=== PATIENT | male | born 1980 | race Caucasian/White ===

== ENCOUNTER 2017-01-01 04:42 | Inpatient (IN) | payer BC ==
[~2017-01-01] VITALS: Ht 185.4 cm; Wt 71.5 kg
[2017-01-01] MEDS ORDERED: DIAZEPAM INJ 5 MG/ML 2 ML CARP IV STA (04:52)
[2017-01-01] MEDS ORDERED: SODIUM CHLORIDE 0.9% 1000ML 1,000 ML IV STA ×2 (04:52)
[2017-01-01 05:28] LABS: BENZODIAZEPINE, URINE NEG (NEG); COCAINE,URINE NEG (NEG); PHENCYCLIDINE, URINE NEG (NEG)
[2017-01-01 05:49] LABS: URINE APPEARANCE CLEAR (CLEAR); URINE BILIRUBIN NEG (NEG); URINE COLOR YELLOW; URINE NITRITE NEG (NEG); URINE PH 6.5 (4.5-7.5); URINE SPECIFIC GRAVITY 1.008 (1.000-1.030); UROBILINOGEN NEG (NEG)
[2017-01-01 06:00] LABS: BASO % 0.5 %; BASO ABS # 0.03 K/uL (0-0.2); COMPLETE YES; EOS % 1.1 %; HEMATOCRIT 39.6 % (42-52); IG% 2.5 %; LYMPH % 19.8 %; LYMPH ABS # 1.28 K/uL (1.2-3.4); MEAN CELL VOLUME 81.5 fL (80-100); MEAN CORPUSCULAR HEMOGLOBIN 27.4 pg (25-34); MEAN CORPUSCULAR HGB CONC 33.6 g/dl (32-36); MONO % 7.9 %; NEUT % 68.2 %; PLATELET COUNT 263 K/uL (130-400); RED BLOOD COUNT 4.86 M/uL (4.7-6.1); WHITE BLOOD COUNT 6.47 K/uL (4.8-10.8)
[2017-01-01 06:04] LABS: MANUAL MICROSCOPIC REQUIRED? NO; REVIEW REQ? NO
[2017-01-01 06:08] LABS: BUN/CREATININE RATIO 10.3 (10-20); CREATININE 0.94 mg/dl (0.60-1.40); POTASSIUM 3.3 mmol/L (3.5-5.1)
[2017-01-01 06:13] LABS: PROTHROMBIN TIME (PATIENT) 10.9 SECONDS (9.0-12.0)
[2017-01-01] MEDS ORDERED: POTASSIUM CHLORIDE 10 MEQ TABCR PO STA (06:18)
[2017-01-01 06:21] LABS: PHOSPHORUS 0.5 mg/dl (2.5-4.9); THYROID STIMULATING HORMONE 2.89 uIu/ml (0.300-4.500)
[2017-01-01] MEDS ORDERED: POTASSIUM PHOS 3 MMOL/1 ML INFUSION IV STA (06:23)
[2017-01-01] MEDS ORDERED: POTASSIUM PHOSPHATE INJ 40 MMOL in SODIUM CHLORIDE 0.9% 1000ML 1,000 ML IV ONE (07:00)
--- NOTE | 2017-01-01 07:32 | DIAGNOSTIC IMAGING REPORT ---
CT SCAN OF THE BRAIN WITHOUT IV CONTRAST CLINICAL HISTORY: Seizure. COMPARISON STUDY: No priors. TECHNIQUE: Unenhanced axial CT scan of the brain is performed from the vertex to the skull base. Automated dose control exposure was utilized. CT DOSE: 614.27 mGy.cm FINDINGS: Brain parenchyma: The brain parenchyma is normal in appearance. There is no hemorrhage, mass effect, or evidence of acute territorial ischemia by CT criteria. Walker-white matter is preserved. No extra-axial fluid collection is seen. Ventricles, sulci, cisterns: Normal in configuration. Intracranial vasculature: The visualized intracranial vasculature at the skull base is normal in appearance. Calvarium: Unremarkable. Sinuses and mastoids: The visualized paranasal sinuses are clear. The mastoid air cells are well pneumatized. Orbits: The bony orbits are grossly intact. IMPRESSION: There is no hemorrhage, mass effect, or evidence of acute territorial ischemia by CT criteria. Electronically signed by: Ricky Latham M.D. 01/01/2017 7:31 AM Dictated Date/Time: 01/01/2017 7:29 AM
[2017-01-01] MEDS ORDERED: LORAZEPAM 2 MG/ML 1 ML VIAL IV PRN (08:15)
[2017-01-01] MEDS ORDERED: ONDANSETRON INJ 2 MG/ML 2 ML VIAL IV PRN (08:15)
[2017-01-01] MEDS ORDERED: MAGNESIUM HYDROXIDE SUSP 30 ML UDC PO PRN (08:15)
[2017-01-01] MEDS ORDERED: ACETAMINOPHEN 325 MG TAB PO PRN (08:15)
[2017-01-01 08:16] VITALS: BP 108/70; PULSE 76; TEMP 36.9; O2SAT 100; Ht 185.4 cm; Wt 71.5 kg
--- NOTE | 2017-01-01 08:57 | Medical Student: [facility] ---
Med Student History & Physical Date & Time of Service: Jan 01, 2017 at 08:37 Chief Complaint: Seizure Primary Care Physician: Shashi Cook MD History of Present Illness Source: patient, spouse 36 year old male with a history of resolved Crohn's disease presents to the ED with a possible seizure overnight. Patient's states that she woke up around 3:45 am and the patient was convulsing and shaking for about 2-3 minutes. He was not responsive to verbal or visual cues. He stopped shaking after 2-3 minutes but for about 10 minutes he was still not responsive to cues. Patient doesn't remember anything about the seizure, says he came to and there were just insecticide sprayer around him. He denies any incontinence, teeth grinding, fevers, chills, or headaches. He has never had a seizure before. He did have some loose stools and pain with his BM last night before he went to bed. There is no family history of seizures. The patient states that his Crohn's disease has been resolved for about 10 years. He does not take any medication for it and he is not being followed by GI or any other doctor for it. Past Medical/Surgical History Crohn's Disease Bilateral Middle Back pain Family History Mom: HTN, Heart disease Dad: HTN Sister: Anxiety Dementia in the family Father: HTN Mother: HTN, heart disease Social History Lives with and son. 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 Does not smoke, rarely drinks alcohol, and does not use recreational drugs. Smoking Status: Never Smoker Smokeless Tobacco Use: No Alcohol Use: Rarely. Couple times a year Drug Use: none Marital Status: Housing status: lives with family Occupational Status: employed Allergies Coded Allergies: Mercaptopurine (Verified Adverse Reaction, Intermediate, GI SYMPTOMS, 01/01) Medications No Active Prescriptions or Reported Meds Review of Systems Constitutional: No fever, No chills, No weight loss Eyes: No worsening of vision, No discharge ENT: No hearing loss, No tinnitus, No trouble swallowing Respiratory: + shortness of breath (Sometime with his back pain), No cough, No sputum, No hemoptysis Cardiovascular: No chest pain, No edema Abdomen: + diarrhea (Had loose stools before he went to bed and woke up with seizure), No pain, No nausea, No vomiting, No constipation Musculoskeletal: No joint pain, No muscle pain, No swelling Genitourinary - Male: No hematuria, No urinary frequency, No urinary urgency Neurologic: No paralysis, No weakness, No numbness/tingling Psychiatric: No depression symptoms Endocrine: No excessive urination Hematologic / Lymphatic: No abnormal bleeding/bruising Integumentary: + problem reported (Bug Bites), No rash, No itch Physical Exam Vital Signs (24 Hours) Date Time Temp Pulse Resp B/P (MAP) Pulse Ox O2 Delivery O2 Flow Rate FiO2 01/01/17 08:16 100 Room Air 01/01/17 08:14 98 01/01/17 07:00 96 15 111/60 100 Room Air 01/01/17 05:27 107 15 01/01/17 05:12 98 16 100 01/01/17 05:03 99 Room Air 01/01/17 05:03 99 Room Air 01/01/17 04:57 97 100 01/01/17 04:51 99 01/01/17 04:46 37.0 99 12 125/74 100 Room Air 01/01/17 04:46 125/74 General Appearance: WD/WN, no apparent distress Head: normocephalic, atraumatic Eyes: PERRL ENT: normal ENT inspection, hearing grossly normal, TMs normal, pharynx normal Neck: no adenopathy, trachea midline Respiratory/Chest: lungs clear, normal breath sounds, no respiratory distress Cardiovascular: regular rate, rhythm, no edema, no gallop, no JVD, no murmur, normal peripheral pulses Abdomen/GI: normal bowel sounds, non tender, soft, no organomegaly Back: no CVA tenderness, + decreased range of motion (Bilateral mid-back tenderness and weakness), + paravertebral tenderness Extremities/Musculoskelatal: normal inspection, no calf tenderness, no pedal edema Neurologic/Psych: affiliate 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 specialist II-XII nml as tested, no motor/sensory deficits, alert, normal mood/affect, oriented x 3 Skin: normal color, no rash Diagnostics Laboratory Results Results Past 24 Hours Test 01/01/17 00:00 01/01/17 05:35 01/01/17 05:43 01/01/17 08:03 Range/Units Urine Opiates Screen NEG NEG Urine Methadone, Qualitative NEG NEG Urine Barbiturates NEG NEG Urine Phencyclidine (PCP) Level NEG NEG Ur Amphetamine/Methamphetamine NEG NEG MDMA (Ecstasy) Screen NEG NEG Urine Benzodiazepines Screen NEG NEG Urine Cocaine Metabolite NEG NEG Urine Marijuana (THC) NEG NEG Urine Color YELLOW Urine Appearance CLEAR CLEAR Urine pH 6.5 4.5-7.5 Urine Specific [place] 1.008 1.000-1.030 Urine Protein NEG NEG Urine Glucose (UA) NEG NEG Urine Ketones NEG NEG Urine Occult Blood NEG NEG Urine Nitrite NEG NEG Urine Bilirubin NEG NEG Urine Urobilinogen NEG NEG Urine Leukocyte Esterase NEG NEG White Blood Count 6.47 4.8-10.8 K/uL Red Blood Count 4.86 4.7-6.1 M/uL Hemoglobin 13.3 14.0-18.0 g/dL Hematocrit 39.6 42-52 % Mean Corpuscular Volume 81.5 80-100 fL Mean Corpuscular Hemoglobin 27.4 25-34 pg Mean Corpuscular Hemoglobin Concent 33.6 32-36 g/dl Platelet Count 263 130-400 K/uL Mean Platelet Volume 9.0 7.4-10.4 fL Neutrophils (%) (Auto) 68.2 % Lymphocytes (%) (Auto) 19.8 % Monocytes (%) (Auto) 7.9 % Eosinophils (%) (Auto) 1.1 % Basophils (%) (Auto) 0.5 % Neutrophils # (Auto) 4.42 1.4-6.5 K/uL Lymphocytes # (Auto) 1.28 1.2-3.4 K/uL Monocytes # (Auto) 0.51 0.11-0.59 K/uL Eosinophils # (Auto) 0.07 0-0.5 K/uL Basophils # (Auto) 0.03 0-0.2 K/uL RDW Standard Deviation 40.9 36.4-46.3 fL RDW Coefficient of Variation 13.7 11.5-14.5 % Immature Granulocyte % (Auto) 2.5 % Immature Granulocyte # (Auto) 0.16 0.00-0.02 K/uL Prothrombin Time 10.9 9.0-12.0 SECONDS Prothromb Time International Ratio 1.0 0.9-1.1 Activated Partial Thromboplast Time 25.2 21.0-31.0 SECONDS Partial Thromboplastin Ratio 1.0 Sodium Level 143 136-145 mmol/L Potassium Level 3.3 3.5-5.1 mmol/L Chloride Level 109 98-107 mmol/L Carbon Dioxide Level 26 21-32 mmol/L Anion Gap 8.0 3-11 mmol/L Blood Urea Nitrogen 10 7-18 mg/dl Creatinine 0.94 0.60-1.40 mg/dl Est Creatinine Clear Calc Drug Dose 111.7 ml/min Estimated GFR () 119.6 Estimated GFR (Non- 103.2 BUN/Creatinine Ratio 10.3 10-20 Random Glucose 97 70-99 mg/dl Phosphorus Level 0.5 2.5-4.9 mg/dl Magnesium Level 2.0 1.8-2.4 mg/dl Total Creatine Kinase 264 39-308 U/L Thyroid Stimulating Hormone (TSH) 2.890 0.300-4.500 uIu/ml Diagnostic Radiology CT of head: no pertinent findings Impression Assessment and Plan 36 year old male presented to the ED with new onset seizures and hypophosphatemia and hypokalemia. The seizures seem generalized and lasted about 2-3 minutes followed by a 10 minute post-ictus period. It is possible that his low phosphate levels could have caused the seizures. Etiology for seizures and hypophosphatemia need to be further assessed. Hypophosphatemia -Hyperparathyroidism (assess PTH and Calcium levels) -low vitamin D (assess vitamin D level) -increased glucose intake (unlikely as the patient has not been on IV glucose infusions) -Crohn's disease causing malabsorption of phosphate (unlikely as there is no other malabsorption) -it is possible that he has always had a low base line phosphate level Acute treatment: replenish phosphate levels with IV phosphate. Recheck labs F/u with PCP Seizures -Neurology consult -EEG. If EEG shows abnormalities, consider starting patient on anti-epilectic medication. Treatment: at this time, without specific etiology and since it is a new onset seizure, observe the patient for recurrent seizure. Since he has only had 1 seizure as of date, he does not have epilepsy and should not be started on anti- seizure meds. If EEG shows abnormalities, start on anti-seizure medications. Patient should not be driving at this time. f/u with PCP or neurology outpatient Hypokalemia -recheck labs to see if hypokalemia has resolved with Phosphate replenishment and increased time since the seizure. It is possible that he may have hypokalemia from the seizure. Back Pain -Consider an outpatient work-up for B-27 positive spondyloarthropathy Crohn's Disease -Although he has been in remission, consider outpatient work up for Crohn's disease as it may have started acting up again. Level of Care Med/Surg Advanced Directives Existing Living Will: No Existing Power of Child Welfare Assistant: No
--- NOTE | 2017-01-01 09:37 | Neurology Consultation ---
Neurology Consultation Date of Consultation: Jan 01, 2017. Attending Physician: Primary Care Physician: Shashi Cook MD Reason for Consultation: New-onset seizure History of Present Illness Source: patient, spouse, hospital records This is a 36-year-old male who presented with presumed new onset seizure. Patient denies any recent illnesses or abnormal headaches. He does report having a mild headache this morning likely due to caffeine withdrawal. He does report some chronic low back pain typically associated with sleeping in bed and improves during the day. Denies any radiculopathy type symptoms. Denied any sick symptoms or abnormal symptoms before going to bed last night. reports that she woke up after 3 AM this morning to him convulsing. She reports that he appeared to be shaking all over. His eyes were open and looking straight ahead. He was unresponsive. She reports that he was shaking for 2-3 minutes. After which he seemed to be confused, moaning, moving around in bed, for another 10 minutes. After which she started to respond a little bit more appropriately. No urinary incontinence. No tongue biting. Patient has never had an episode like this in the past. No loss of consciousness. No major head injuries. No recent fevers or sick symptoms. Denies any new medication or abnormal substances. Denies any new numbness or weakness. Denies any new changes in his speech or vision. Denies any trouble speaking or swallowing. This morning he mostly feels back to his baseline but feels a little bit fatigued. Also complains of low back pain with no radiculopathy symptoms which is not new for him. On ER workup labs were reviewed and noted to have a low phosphorus of 0.5. CT of the head report and images reviewed by myself and unremarkable. Past Medical/Surgical History Patient denies any active ongoing medical problems. There is report of past Crohn's disease which the patient reports is resolved. Family History Denies any significant family history. Nobody with seizures or epilepsy. Social History Patient is employed. Normal independent in his activities of daily living. He does drink coffee and a daily basis. No tobacco use. No alcohol use. No illegal drug use. Occasionally takes fish oil as a supplement. No other supplements. Allergies Coded Allergies: Mercaptopurine (Verified Allergy, Severe, GI SYMPTOMS, 01/01/17) Current Inpatient Medications Current Inpatient Medications Medications (Trade) Dose Ordered Sig/Eriberto Route Start Time Stop Time Status Last Admin Dose Admin Sodium Chloride 1,000 ml @ 125 mls/hr Q8H STAT IV 01/01/17 04:52 01/01/17 12:51 01/01/17 04:52 125 MLS/HR Potassium Phosphate 40 mmol/ Sodium Chloride 1,013.3333 ml @ 155.... NOW ONCE IV 01/01/17 07:00 01/01/17 13:29 01/01/17 06:51 155.897 MLS/HR Heparin Sodium (Porcine) (Heparin Sq 5000 Unit/0.5ml) 5,000 unit Q12 SQ 01/01/17 09:00 01/31/17 08:59 UNV Acetaminophen (Tylenol Tab) 650 mg Q4H PRN PO 01/01/17 08:15 01/31/17 08:14 Magnesium Hydroxide (Milk Of Magnesia Susp) 30 ml Q12H PRN PO 01/01/17 08:15 01/31/17 08:14 Ondansetron HCl (Zofran Inj) 4 mg Q6H PRN IV 01/01/17 08:15 01/31/17 08:14 Lorazepam (Ativan Inj) 1 mg ONE PRN IV 01/01/17 08:15 01/31/17 08:14 Review of Systems Except for the above noted in history of present illness complete review of systems otherwise negative. Physical Exam Vital Signs (Past 24 Hrs): Date Time Temp Pulse Resp B/P (MAP) Pulse Ox O2 Delivery O2 Flow Rate FiO2 01/01/17 09:17 88 16 113/75 97 01/01/17 09:11 88 16 113/75 97 Room Air 01/01/17 08:16 100 Room Air 01/01/17 08:14 98 01/01/17 07:00 96 15 111/60 100 Room Air 01/01/17 05:27 107 15 01/01/17 05:12 98 16 100 01/01/17 05:03 99 Room Air 01/01/17 05:03 99 Room Air 01/01/17 04:57 97 100 01/01/17 04:51 99 01/01/17 04:46 37.0 99 12 125/74 100 Room Air 01/01/17 04:46 125/74 Gen.: Patient is alert and sitting in bed, in no acute distress. HEENT: Normocephalic /atraumatic, no scleral icterus Heart: Regular rate and rhythm Extremities: No gross deformities or rashes noted Neurological examination: Mental status: Patient is alert and oriented x3. Attention and concentration normal for the situation. Good fund of knowledge. Able to give her own history. Speech is fluent without any dysarthria or aphasia noted Cranial nerve: Funduscopic examination was unremarkable. No papilledema. Pupils equally round and reactive to light. Extraocular muscles intact without nystagmus. No facial asymmetry noted. Facial sensation intact. Tongue is midline. Good palatal elevation. Good shoulder shrug bilaterally. Hearing grossly intact to voice. Strength: 5/5 both proximal and distally in all extremities. There is no arm drift. Tone is normal. Sensation: Grossly intact to light touch in all extremities. Deep tendon reflexes: +1 in bilateral biceps, brachioradialis and patellar. Toes were downgoing to plantar stimulation Coordination: Patient had good finger to nose without dysmetria Station within the bed was normal Laboratory Results Past 24 Hours: 01/01/17 05:43 Red Blood Count 4.86, Mean Corpuscular Volume 81.5, Mean Corpuscular Hemoglobin 27.4, Mean Corpuscular Hemoglobin Concent 33.6, Mean Platelet Volume 9.0, Neutrophils (%) (Auto) 68.2, Lymphocytes (%) (Auto) 19.8, Monocytes (%) (Auto) 7.9, Eosinophils (%) (Auto) 1.1, Basophils (%) (Auto) 0.5, Neutrophils # (Auto) 4.42, Lymphocytes # (Auto) 1.28, Monocytes # (Auto) 0.51, Eosinophils # (Auto) 0.07, Basophils # (Auto) 0.03 01/01/17 05:43 Test 01/01/17 00:00 01/01/17 05:35 01/01/17 05:43 01/01/17 08:45 Urine Opiates Screen NEG (NEG) Urine Methadone, Qualitative NEG (NEG) Urine Barbiturates NEG (NEG) Urine Phencyclidine (PCP) Level NEG (NEG) Ur Amphetamine/Methamphetamine NEG (NEG) MDMA (Ecstasy) Screen NEG (NEG) Urine Benzodiazepines Screen NEG (NEG) Urine Cocaine Metabolite NEG (NEG) Urine Marijuana (THC) NEG (NEG) Urine Color YELLOW Urine Appearance CLEAR (CLEAR) Urine pH 6.5 (4.5-7.5) Urine Specific [place] 1.008 (1.000-1.030) Urine Protein NEG (NEG) Urine Glucose (UA) NEG (NEG) Urine Ketones NEG (NEG) Urine Occult Blood NEG (NEG) Urine Nitrite NEG (NEG) Urine Bilirubin NEG (NEG) Urine Urobilinogen NEG (NEG) Urine Leukocyte Esterase NEG (NEG) White Blood Count 6.47 K/uL (4.8-10.8) Red Blood Count 4.86 M/uL (4.7-6.1) Hemoglobin 13.3 g/dL (14.0-18.0) Hematocrit 39.6 % (42-52) Mean Corpuscular Volume 81.5 fL (80-100) Mean Corpuscular Hemoglobin 27.4 pg (25-34) Mean Corpuscular Hemoglobin Concent 33.6 g/dl (32-36) Platelet Count 263 K/uL (130-400) Mean Platelet Volume 9.0 fL (7.4-10.4) Neutrophils (%) (Auto) 68.2 % Lymphocytes (%) (Auto) 19.8 % Monocytes (%) (Auto) 7.9 % Eosinophils (%) (Auto) 1.1 % Basophils (%) (Auto) 0.5 % Neutrophils # (Auto) 4.42 K/uL (1.4-6.5) Lymphocytes # (Auto) 1.28 K/uL (1.2-3.4) Monocytes # (Auto) 0.51 K/uL (0.11-0.59) Eosinophils # (Auto) 0.07 K/uL (0-0.5) Basophils # (Auto) 0.03 K/uL (0-0.2) RDW Standard Deviation 40.9 fL (36.4-46.3) RDW Coefficient of Variation 13.7 % (11.5-14.5) Immature Granulocyte % (Auto) 2.5 % Immature Granulocyte # (Auto) 0.16 K/uL (0.00-0.02) Prothrombin Time 10.9 SECONDS (9.0-12.0) Prothromb Time International Ratio 1.0 (0.9-1.1) Activated Partial Thromboplast Time 25.2 SECONDS (21.0-31.0) Partial Thromboplastin Ratio 1.0 Anion Gap 8.0 mmol/L (3-11) Est Creatinine Clear Calc Drug Dose 111.7 ml/min Estimated GFR () 119.6 Estimated GFR (Non- 103.2 BUN/Creatinine Ratio 10.3 (10-20) Phosphorus Level 0.5 mg/dl (2.5-4.9) Magnesium Level 2.0 mg/dl (1.8-2.4) Total Creatine Kinase 264 U/L (39-308) Thyroid Stimulating Hormone (TSH) 2.890 uIu/ml (0.300-4.500) Imaging As noted above in history of present illness Impression This is a 36-year-old male who presents with what sounds like a possible generalized seizure. Cannot rule out focal onset seizure. It is unclear whether his low phosphorus could be an etiology. No other risk factor for seizures. Patient appears to be back to his baseline this morning. Plan Agree with obtaining an MRI of the brain and EEG for further evaluation of seizure etiology. Discussed with patient that per [place] law, if there is no clear preventable/ provokable cause for his seizure, he is not to drive for 6 months since his last seizure. With the single seizure, no need to start antiepileptic medications at this time unless his EEG is highly suggestive for epilepsy and future seizures. Agree with working the patient up for secondary causes of seizure and replacing phosphorus. Will likely need to follow up with primary care physician regarding monitoring of phosphorus levels. If the patient's workup today is essentially unremarkable, could reasonably be discharged tonight or tomorrow morning and follow up in neurology clinic in 1-2 months (or as needed if no additional seizures). Thank you for allowing me to participate in this patient's care. If there is any questions or concerns, feel free to call/page me. Of Note: Back pain sounds like it's likely secondary to his mattress and they may want to consider evaluate getting a new mattress.
[2017-01-01 10:04] LABS: LYME DISEASE AB IGM NEG (NEG)
[2017-01-01 10:05] LABS: LYME DISEASE AB IGG NEG (NEG)
[2017-01-01] MEDS ORDERED: GADAVIST IV PRN (10:45)
--- NOTE | 2017-01-01 10:59 | DIAGNOSTIC IMAGING REPORT ---
MRI OF THE BRAIN COMBO CLINICAL HISTORY: New onset seizure. COMPARISON STUDY: CT of the brain dated 01/01/2017. TECHNIQUE: MRI of the brain was performed utilizing various T1 and T2-weighted sequences in the axial, sagittal, and coronal planes. Contrast-enhanced sequences were acquired following the administration of 6.5 cc of Gadavist. The examination is performed using the seizure protocol. FINDINGS: Brain parenchyma: The brain parenchyma is normal in appearance. There is no hemorrhage or mass effect. There is no restricted diffusion to suggest acute ischemia. No enhancing mass lesion is identified on the postcontrast images. Walker-white matter differentiation is preserved. No extra-axial fluid collection is seen. The cerebellar tonsils are normal in configuration. The hippocampi are normal and symmetric. Ventricles, sulci, and cisterns: Normal in configuration. Pituitary and sella: Unremarkable. Intracranial vasculature: Normal flow voids are maintained at the skull base. Orbits: The bony orbits are grossly intact. Orbital contents are normal in appearance. Sinuses and mastoids: There is trace mucosal thickening in the right maxillary antrum. The remaining paranasal sinuses and mastoid air cells are clear. Calvarium: Unremarkable. Cervical cord: Partially visualized cervical spinal cord is normal in morphology and signal intensity. IMPRESSION: No acute intracranial abnormality. Electronically signed by: Ricky Latham M.D. 01/01/2017 10:58 AM Dictated Date/Time: 01/01/2017 10:53 AM
--- NOTE | 2017-01-01 11:30 | EEG Procedure Note ---
EEG Procedure Note Date of Service Jan 01, 2017. Start / End Times Start Time: 9:05 AM End Time: 9:25 AM Referring Physician Radha Stone History This is a 36-year-old male who presents with a single seizure-like episode. EEG for further evaluation of possible seizure etiology. Home Medication List No Active Prescriptions or Reported Meds Inpatient Medication List Current Inpatient Medications Medications (Trade) Dose Ordered Sig/Eriberto Route Start Time Stop Time Status Last Admin Dose Admin Potassium Phosphate 40 mmol/ Sodium Chloride 1,013.3333 ml @ 155.... NOW ONCE IV 01/01/17 07:00 01/01/17 13:29 01/01/17 06:51 155.897 MLS/HR Heparin Sodium (Porcine) (Heparin Sq 5000 Unit/0.5ml) 5,000 unit Q12 SQ 01/01/17 21:00 01/31/17 20:59 Acetaminophen (Tylenol Tab) 650 mg Q4H PRN PO 01/01/17 08:15 01/31/17 08:14 01/01/17 09:35 650 MG Magnesium Hydroxide (Milk Of Magnesia Susp) 30 ml Q12H PRN PO 01/01/17 08:15 01/31/17 08:14 Ondansetron HCl (Zofran Inj) 4 mg Q6H PRN IV 01/01/17 08:15 01/31/17 08:14 Lorazepam (Ativan Inj) 1 mg ONE PRN IV 01/01/17 08:15 01/31/17 08:14 Gadobutrol (Gadavist) 6.5 mmol UD PRN IV 01/01/17 10:45 01/05/17 10:44 Description This is a 21 electrode EEG with a single channel dedicated to limited EKG. The electrodes were placed in accordance with the International 10-20 system. There was minor intermittent electrical artifact noted at T3 and C3 At the start of the recording the patient was in an awake state. Background was well organized and composed of symmetric mixed alpha and beta frequencies. There was a symmetric well-formed moderate amplitude 11-12 Hz posterior dominant rhythm that was reactive to eye opening and closure. Hyperventilation was not done. Intermittent photic stimulation at various frequencies produced no abnormalities. Sleep was indicated by slowing of the background rhythm, vertex waves, symmetric sleep spindles. Interpretation This is a normal awake and asleep routine EEG. There was no electrographic seizures or epileptiform discharges. Clinical Correlation A normal EEG does not rule out epilepsy if there is a strong clinical suspicion.
[2017-01-01 12:06] LABS: CALCIUM 8.5 mg/dl (8.5-10.1)
--- NOTE | 2017-01-01 12:20 | History and Physical ---
History & Physical Date & Time of Service: Jan 01, 2017 at 11:57 Chief Complaint: Hypokalemia, Hypophosphatasia, Seizure Primary Care Physician: Shashi Cook MD History of Present Illness Source: patient, family This is a 36 yo m that is presenting to us after a witnessed seizure. At approx 0345 the was woken up by the patient diffusely convulsing. This lasted for approximately 2-3 minutes. There was no bowel or bladder incontinence however patient was breathing and unresponsive after the episode for approx 15 minutes. The patient was not awake until the EMT had arrived. He has not had another episode since. This is a first time seizure. he denies any headache, dizziness, tinnitus, presyncope, chest pain or SOB prior to the event. He denies any head trauma aside from a concussion he had 10 -12 years prior. He has had no recent trips, infections and does not take dietary supplements. Does not drink alcohol regularly and no illicit drug use. He was told in his 20s he had an irregular heart beat but no work up was completed. He has a history of Crohn's however does not take medication for this. 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 Family History FHx: coronary artery disease MOTHER Social History Smoking Status: Never Smoker Smokeless Tobacco Use: No Alcohol Use: rarely Drug Use: none Marital Status: Housing status: lives with family Occupational Status: employed Allergies Coded Allergies: Mercaptopurine (Verified Adverse Reaction, Intermediate, GI SYMPTOMS, 01/01) Home Medications No Active Prescriptions or Reported Meds Review of Systems Constitutional: No fever Eyes: No worsening of vision ENT: No hearing loss Respiratory: No cough, No sputum, No wheezing, No shortness of breath, No dyspnea on exertion, No dyspnea at rest Cardiovascular: No chest pain Abdomen: No pain, No nausea, No vomiting, No diarrhea, No constipation Musculoskeletal: No joint pain, No muscle pain Genitourinary - Male: No hematuria, No dysuria Neurologic: No weakness, No numbness/tingling, No balance problems Psychiatric: No depression symptoms Endocrine: No fatigue Integumentary: No rash Physical Exam Vital Signs Date Time Temp Pulse Resp B/P (MAP) Pulse Ox O2 Delivery O2 Flow Rate FiO2 01/01/17 09:17 88 16 113/75 97 01/01/17 09:11 88 16 113/75 97 Room Air 01/01/17 08:16 36.9 76 18 108/70 100 Room Air 01/01/17 08:14 98 01/01/17 07:00 96 15 111/60 100 Room Air 01/01/17 05:27 107 15 01/01/17 05:12 98 16 100 01/01/17 05:03 99 Room Air 01/01/17 05:03 99 Room Air 01/01/17 04:57 97 100 01/01/17 04:51 99 01/01/17 04:46 37.0 99 12 125/74 100 Room Air 01/01/17 04:46 125/74 General Appearance: no apparent distress Head: normocephalic, atraumatic Eyes: normal inspection ENT: normal ENT inspection Neck: supple Respiratory/Chest: normal breath sounds, no respiratory distress, no accessory muscle use Cardiovascular: regular rate, rhythm, no murmur Abdomen/GI: normal bowel sounds, non tender, soft Back: normal inspection Extremities/Musculoskelatal: no calf tenderness, no pedal edema, normal range of motion 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, no motor/sensory deficits, alert, normal mood/affect, normal reflexes, oriented x 3 Skin: normal color, warm/dry, no rash Lymphatic: no adenopathy Diagnostics Laboratory Results Results Past 24 Hours Test 01/01/17 00:00 01/01/17 05:35 01/01/17 05:43 01/01/17 08:45 Range/Units Urine Opiates Screen NEG NEG Urine Methadone, Qualitative NEG NEG Urine Barbiturates NEG NEG Urine Phencyclidine (PCP) Level NEG NEG Ur Amphetamine/Methamphetamine NEG NEG MDMA (Ecstasy) Screen NEG NEG Urine Benzodiazepines Screen NEG NEG Urine Cocaine Metabolite NEG NEG Urine Marijuana (THC) NEG NEG Urine Color YELLOW Urine Appearance CLEAR CLEAR Urine pH 6.5 4.5-7.5 Urine Specific [place] 1.008 1.000-1.030 Urine Protein NEG NEG Urine Glucose (UA) NEG NEG Urine Ketones NEG NEG Urine Occult Blood NEG NEG Urine Nitrite NEG NEG Urine Bilirubin NEG NEG Urine Urobilinogen NEG NEG Urine Leukocyte Esterase NEG NEG White Blood Count 6.47 4.8-10.8 K/uL Red Blood Count 4.86 4.7-6.1 M/uL Hemoglobin 13.3 14.0-18.0 g/dL Hematocrit 39.6 42-52 % Mean Corpuscular Volume 81.5 80-100 fL Mean Corpuscular Hemoglobin 27.4 25-34 pg Mean Corpuscular Hemoglobin Concent 33.6 32-36 g/dl Platelet Count 263 130-400 K/uL Mean Platelet Volume 9.0 7.4-10.4 fL Neutrophils (%) (Auto) 68.2 % Lymphocytes (%) (Auto) 19.8 % Monocytes (%) (Auto) 7.9 % Eosinophils (%) (Auto) 1.1 % Basophils (%) (Auto) 0.5 % Neutrophils # (Auto) 4.42 1.4-6.5 K/uL Lymphocytes # (Auto) 1.28 1.2-3.4 K/uL Monocytes # (Auto) 0.51 0.11-0.59 K/uL Eosinophils # (Auto) 0.07 0-0.5 K/uL Basophils # (Auto) 0.03 0-0.2 K/uL RDW Standard Deviation 40.9 36.4-46.3 fL RDW Coefficient of Variation 13.7 11.5-14.5 % Immature Granulocyte % (Auto) 2.5 % Immature Granulocyte # (Auto) 0.16 0.00-0.02 K/uL Prothrombin Time 10.9 9.0-12.0 SECONDS Prothromb Time International Ratio 1.0 0.9-1.1 Activated Partial Thromboplast Time 25.2 21.0-31.0 SECONDS Partial Thromboplastin Ratio 1.0 Sodium Level 143 136-145 mmol/L Potassium Level 3.3 3.5-5.1 mmol/L Chloride Level 109 98-107 mmol/L Carbon Dioxide Level 26 21-32 mmol/L Anion Gap 8.0 3-11 mmol/L Blood Urea Nitrogen 10 7-18 mg/dl Creatinine 0.94 0.60-1.40 mg/dl Est Creatinine Clear Calc Drug Dose 111.7 ml/min Estimated GFR () 119.6 Estimated GFR (Non- 103.2 BUN/Creatinine Ratio 10.3 10-20 Random Glucose 97 70-99 mg/dl Phosphorus Level 0.5 2.5-4.9 mg/dl Magnesium Level 2.0 1.8-2.4 mg/dl Total Creatine Kinase 264 39-308 U/L Thyroid Stimulating Hormone (TSH) 2.890 0.300-4.500 uIu/ml Lyme Disease IgG Antibody NEG NEG Lyme Disease IgM Antibody NEG NEG 25-Hydroxy Vitamin D Total 30.7 30-100 ng/ml Parathyroid Hormone (Intact) 46.5 11.1-79.5 pg/mL Diagnostic Radiology [~ rep ct add3]] CT SCAN OF THE BRAIN WITHOUT IV CONTRAST CLINICAL HISTORY: Seizure. COMPARISON STUDY: No priors. TECHNIQUE: Unenhanced axial CT scan of the brain is performed from the vertex to the skull base. Automated dose control exposure was utilized. CT DOSE: 614.27 mGy.cm FINDINGS: Brain parenchyma: The brain parenchyma is normal in appearance. There is no hemorrhage, mass effect, or evidence of acute territorial ischemia by CT criteria. Walker-white matter is preserved. No extra-axial fluid collection is seen. Ventricles, sulci, cisterns: Normal in configuration. Intracranial vasculature: The visualized intracranial vasculature at the skull base is normal in appearance. Calvarium: Unremarkable. Sinuses and mastoids: The visualized paranasal sinuses are clear. The mastoid air cells are well pneumatized. Orbits: The bony orbits are grossly intact. IMPRESSION: There is no hemorrhage, mass effect, or evidence of acute territorial ischemia by CT criteria. EKG QTc 447 Normal EKG Impression Assessment and Plan This is a 36 yo m with new onset seizures with no specific provoking features. New onset seizure - Order - MRI brain combo, EEG, Neuro consult, seizure precaution, prn BZD - MRI brain combo- WNL -- EEG - WNL - Appreciate neuro rec - [place] [employer] law patient will be restricted from driving x 6 months -lyme neg - Will monitor overnight and if patient remains seizure free will d/c with follow up with neuro and PCP - Ativan IV available for seizure like activity Hypophosphatemia - Check - Vit D and PTH - WNL - Will replete and recheck in afternoon - unlikely caused by the seizure - pending calcium level Hypokalemia Replete and continue to follow Anemia - Check iron studies considering MCV/MCH on lower side of normal DVT Prophylaxis Heparin bid Level of Care Telemetry Advanced Directives Existing Living Will: No 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 Y/N: Yes Risk Level: Moderate Given or contraindicated: Unfractionated heparin SQ Note Total Time: Critical Care 30 - 74 minutes Additional Copies To Shashi Cook MD Reviewed: Pt Seen/Exam by Me History 36 y/o M here with new onset unprovoked seizure Constitutional: denies: fever Respiratory: negative: short of breath Cardiovascular: denies chest pain Gastrointestinal/Abdominal: negative: abdominal pain General Appearance: no apparent distress Respiratory: lungs clear, no respiratory distress Gastrointestinal: normal bowel sounds, non tender, soft Neurologic/Psychiatric: no motor/sensory deficits, alert, normal mood/affect, oriented x 3 Skin Characteristics: warm/dry Assessment/Plan Resident Physician Supervision Note: I was present with Dr. Stone in bedside. I verified the moe history and physical, reviewed labs and image studies, discussed the case with the resident and agree with the findings and care plan.
[2017-01-01 14:03] LABS: BUN/CREATININE RATIO 8.1 (10-20); CALCIUM 8.2 mg/dl (8.5-10.1); CREATININE 0.9 mg/dl (0.60-1.40); POTASSIUM 3.8 mmol/L (3.5-5.1)
[2017-01-01 14:08] LABS: FERRITIN 153.1 ng/ml (8.0-388.0)
[2017-01-01 14:15] LABS: PHOSPHORUS 3.1 mg/dl (2.5-4.9)
[2017-01-01 15:06] VITALS: BP 112/66; PULSE 84; TEMP 36.8; O2SAT 99
[2017-01-01 16:00] VITALS: O2SAT 99
[2017-01-01 20:00] VITALS: O2SAT 96
[2017-01-01] MEDS: HEPARIN SOD 5000 UNIT/0.5 ML CARP SQ SCH (22:00)
[2017-01-01 23:24] VITALS: BP 116/67; PULSE 94; TEMP 37.6; O2SAT 97
[2017-01-02] MEDS ORDERED: NURSING VERBAL MED ORDER ONE
--- NOTE | 2017-01-02 01:08 | EMERGENCY ROOM VISIT NOTE ---
History First contact with patient: 04:52 Chief Complaint: SEIZURE Stated Complaint: SEIZURE Nursing Triage Summary: found pt seizing at 0400 hours, unresponsive 10-15 minutes. EMS found pt post-ictal complaining of lower back pain which he still has. History of Present Illness The patient is a 36 year old male who presents to the Emergency Room with complaints of possible seizure tonight. Patient does not recall the events but states when he came to he complain of diffuse muscle aching and tightness with mild headache. No prior history of seizures. Patient denies drug use, alcohol use, oral supplements, chest pain, dyspnea, abdominal pain, numbness, tingling, vision problems. No family history of seizures. Patient states he went to bed feeling fine. Patient states he has a history of Crohn's but prayed the Crohn' s disease away per pt. History obtained from the who states that she woke up to him by shaking for 10 minutes. He was then confused for 20 minutes. He was not incontinent. She states he is back now to his baseline. No prior history of seizures. Review of Systems See HPI for pertinent positives & negatives. A total of 10 systems reviewed and were otherwise negative. Past Medical/Surgical History Medical Problems: (1) Hypokalemia (2) Hypophosphatasia (3) Seizure Crohns Social History Smoking Status: Never Smoker Smokeless Tobacco Use: No Alcohol Use: none Drug Use: none Marital Status: Housing Status: lives with family Occupation Status: employed Current/Historical Medications No Active Prescriptions or Reported Meds Allergies Coded Allergies: Mercaptopurine (Verified Adverse Reaction, Intermediate, GI SYMPTOMS, 01/01) Physical Exam Vital Signs Date Time Temp Pulse Resp B/P (MAP) Pulse Ox O2 Delivery O2 Flow Rate FiO2 01/01/17 07:00 96 15 111/60 100 Room Air 01/01/17 05:27 107 15 01/01/17 05:12 98 16 100 01/01/17 05:03 99 Room Air 01/01/17 05:03 99 Room Air 01/01/17 04:57 97 100 01/01/17 04:51 99 01/01/17 04:46 37.0 99 12 125/74 100 Room Air 01/01/17 04:46 125/74 Physical Exam VITALS: Vitals are noted on the nurse's note and reviewed by myself. Vital signs stable. GENERAL: Pleasant male, in no acute distress, nondiaphoretic, well-developed well-nourished. SKIN: The skin was without rashes, erythema, edema, or bruising. There is no tenting of the skin. Capillary reflex less than 2 seconds. HEAD: Normocephalic atraumatic. EARS: External auditory canals clear, tympanic membranes pearly crowe without erythema or effusion bilaterally. EYES: Pupils equal round and reactive to light and accommodation. Conjunctivae without injection, sclerae without icterus. Extraocular movements intact. NOSE: Patent, turbinates without inflammation or discharge. MOUTH: Mucous membranes moist. Pharynx without erythema or exudate. Uvula midline. Airway patent. Tongue does not deviate. NECK: Supple without nuchal rigidity. No lymphadenopathy. No thyromegaly. Cervical spine is nontender. No JVD. HEART: Regular rate and rhythm without murmurs gallops or rubs. LUNGS: Clear to auscultation bilaterally without wheezes, rales or rhonchi. No dullness to percussion. No retractions or accessory muscle use. ABDOMEN: Positive bowel sounds x 4. Normal tympanic percussion. Soft, nontender, without masses or organomegaly. Ritter sign negative. No guarding or rebound tenderness. MUSCULOSKELETAL: No muscle atrophy, erythema, or edema noted. 5 out of 5 strength throughout NEURO: Patient was alert and oriented to person place and time. Normal sensation to light and sharp touch. No focal neurological deficits. Cranial nerves II-12 grossly intact. No pronator drift. Cerebellar exam intact. Medical Decision & Procedures Laboratory Results 01/01/17 05:43 Red Blood Count 4.86, Mean Corpuscular Volume 81.5, Mean Corpuscular Hemoglobin 27.4, Mean Corpuscular Hemoglobin Concent 33.6, Mean Platelet Volume 9.0, Neutrophils (%) (Auto) 68.2, Lymphocytes (%) (Auto) 19.8, Monocytes (%) (Auto) 7.9, Eosinophils (%) (Auto) 1.1, Basophils (%) (Auto) 0.5, Neutrophils # (Auto) 4.42, Lymphocytes # (Auto) 1.28, Monocytes # (Auto) 0.51, Eosinophils # (Auto) 0.07, Basophils # (Auto) 0.03 Test 01/01/17 00:00 01/01/17 05:35 01/01/17 05:43 Urine Opiates Screen NEG (NEG) Urine Methadone, Qualitative NEG (NEG) Urine Barbiturates NEG (NEG) Urine Phencyclidine (PCP) Level NEG (NEG) Ur Amphetamine/Methamphetamine NEG (NEG) MDMA (Ecstasy) Screen NEG (NEG) Urine Benzodiazepines Screen NEG (NEG) Urine Cocaine Metabolite NEG (NEG) Urine Marijuana (THC) NEG (NEG) Urine Color YELLOW Urine Appearance CLEAR (CLEAR) Urine pH 6.5 (4.5-7.5) Urine Specific [place] 1.008 (1.000-1.030) Urine Protein NEG (NEG) Urine Glucose (UA) NEG (NEG) Urine Ketones NEG (NEG) Urine Occult Blood NEG (NEG) Urine Nitrite NEG (NEG) Urine Bilirubin NEG (NEG) Urine Urobilinogen NEG (NEG) Urine Leukocyte Esterase NEG (NEG) White Blood Count 6.47 K/uL (4.8-10.8) Red Blood Count 4.86 M/uL (4.7-6.1) Hemoglobin 13.3 g/dL (14.0-18.0) Hematocrit 39.6 % (42-52) Mean Corpuscular Volume 81.5 fL (80-100) Mean Corpuscular Hemoglobin 27.4 pg (25-34) Mean Corpuscular Hemoglobin Concent 33.6 g/dl (32-36) Platelet Count 263 K/uL (130-400) Mean Platelet Volume 9.0 fL (7.4-10.4) Neutrophils (%) (Auto) 68.2 % Lymphocytes (%) (Auto) 19.8 % Monocytes (%) (Auto) 7.9 % Eosinophils (%) (Auto) 1.1 % Basophils (%) (Auto) 0.5 % Neutrophils # (Auto) 4.42 K/uL (1.4-6.5) Lymphocytes # (Auto) 1.28 K/uL (1.2-3.4) Monocytes # (Auto) 0.51 K/uL (0.11-0.59) Eosinophils # (Auto) 0.07 K/uL (0-0.5) Basophils # (Auto) 0.03 K/uL (0-0.2) RDW Standard Deviation 40.9 fL (36.4-46.3) RDW Coefficient of Variation 13.7 % (11.5-14.5) Immature Granulocyte % (Auto) 2.5 % Immature Granulocyte # (Auto) 0.16 K/uL (0.00-0.02) Prothrombin Time 10.9 SECONDS (9.0-12.0) Prothromb Time International Ratio 1.0 (0.9-1.1) Activated Partial Thromboplast Time 25.2 SECONDS (21.0-31.0) Partial Thromboplastin Ratio 1.0 Magnesium Level 2.0 mg/dl (1.8-2.4) Total Creatine Kinase 264 U/L (39-308) Thyroid Stimulating Hormone (TSH) 2.890 uIu/ml (0.300-4.500) Lyme Disease IgG Antibody NEG (NEG) Lyme Disease IgM Antibody NEG (NEG) Medications Administered Medications (Trade) Dose Ordered Sig/Eriberto Route Start Time Stop Time Status Last Admin Dose Admin Sodium Chloride 1,000 ml @ 999 mls/hr Q1H1M STAT IV 01/01/17 04:52 01/01/17 05:52 DC 01/01/17 05:13 999 MLS/HR Sodium Chloride 1,000 ml @ 125 mls/hr Q8H STAT IV 01/01/17 04:52 01/01/17 11:24 DC 01/01/17 04:52 125 MLS/HR Diazepam (Valium Inj) 2.5 mg NOW STAT IV 01/01/17 04:52 01/01/17 04:55 DC 01/01/17 05:18 2.5 MG Potassium Chloride (Klor-Con M10) 20 meq NOW STAT PO 01/01/17 06:18 01/01/17 06:19 DC 01/01/17 06:28 20 MEQ Potassium Phosphate 40 mmol/ Sodium Chloride 1,013.3333 ml @ 155.... NOW ONCE IV 01/01/17 07:00 01/01/17 13:29 DC 01/01/17 06:51 155.897 MLS/HR ED Course Prior records/ancillary studies reviewed. Patient placed in seizure precautions immediately upon arrival. Nursing notes reviewed. Additional history obtained from family The patient's history was concerning for a possible seizure. Differential diagnosis: Etiologies such as infection, hypoglycemia, electrolyte abnormalities, cardiac sources, intracerebral event, trauma, toxicologic, neurologic, as well as others were entertained. Physical examination: As above. No signs of trauma. ER treatment provided: valium IV fluids, potassium, phosphorus On reassessment the patient felt better. Diagnostics interpretation by me: ECG: Normal sinus, normal intervals, no acute ST-T wave changes. Impression normal sinus rhythm interpreted by myself The labs revealed hypokalemia. Critically low phosphorus Imaging studies: Negative head CT for hemorrhage mass or edema per stat radiology Consultation: A consultation was placed with the pharmacist for proper repletion of the phosphorus. I consulted medicine, Fransisco Bravo, and will evaluate the patient for possible admission. The case was discussed and diagnostics were reviewed. Exam and history seem concerning for seizure that could be related to low phosphorus. Patient denies any prior history of recent vomiting or diarrhea.. Patient states he's been eating and drinking normally. Maybe eating a little bit more fast food. Patient will be evaluated by medicine for possible admission. The patient was counseled not to drive until cleared in follow-up and seizure precautions given. I gave my usual and customary discussion regarding these issues. The appropriate emergency medical technician/driver's license form was completed and submitted. The pt informed about the findings as listed above. All questions were answered and pleased with the treatment. Case reviewed with my attending Medical Decision as above Impression Primary Impression: Seizure Additional Impressions: Hypokalemia Anemia Hypophosphatemia Departure Information Dispostion Being Evaluated By Hospitalist Condition FAIR Prescriptions No Active Prescriptions or Reported Meds Referrals Shashi Cook MD (PCP) Patient Instructions [facility] Health Problem Qualifiers
[2017-01-02 03:35] VITALS: BP 100/61; PULSE 77; TEMP 36.7; O2SAT 98
[2017-01-02 04:08] VITALS: BP 112/61; PULSE 88; TEMP 37.2; O2SAT 95
[2017-01-02 06:51] LABS: HEMATOCRIT 38.2 % (42-52); MEAN CELL VOLUME 82.2 fL (80-100); MEAN CORPUSCULAR HEMOGLOBIN 26.5 pg (25-34); MEAN CORPUSCULAR HGB CONC 32.2 g/dl (32-36); PLATELET COUNT 267 K/uL (130-400); RED BLOOD COUNT 4.65 M/uL (4.7-6.1); WHITE BLOOD COUNT 6.63 K/uL (4.8-10.8)
[2017-01-02 06:54] VITALS: BP 106/71; PULSE 57; TEMP 36.5; O2SAT 98
[2017-01-02 07:26] LABS: BUN/CREATININE RATIO 9.4 (10-20); CALCIUM 8.6 mg/dl (8.5-10.1); POTASSIUM 3.5 mmol/L (3.5-5.1)
[2017-01-02 07:37] LABS: PHOSPHORUS 3.8 mg/dl (2.5-4.9)
[2017-01-02] MEDS: HEPARIN SOD 5000 UNIT/0.5 ML CARP SQ SCH (09:18)
--- NOTE | 2017-01-02 09:42 | Neurology Progress Notes ---
Neurology Progress Note Date of Service Jan 02, 2017. Subjective No new neurological symptoms. No additional seizure-like episodes. MRI of the brain report and images reviewed by myself and normal EEG was read by myself and a normal awake and asleep. Objective Date Time Temp Pulse Resp B/P (MAP) Pulse Ox O2 Delivery O2 Flow Rate FiO2 01/02/17 08:30 Room Air 01/02/17 06:54 36.5 57 16 106/71 (83) 98 Room Air 01/02/17 04:08 37.2 88 18 112/61 (78) 95 Room Air 01/02/17 04:00 Room Air 01/02/17 03:35 36.7 77 20 100/61 (74) 98 Room Air 01/02/17 00:00 Room Air 01/01/17 23:24 37.6 94 16 116/67 (83) 97 Room Air 01/01/17 20:00 96 Room Air 01/01/17 16:00 99 Room Air 01/01/17 15:06 36.8 84 18 112/66 (81) 99 Room Air 01/01/17 12:00 Room Air Last 24 Hours Test 01/01/17 13:01 01/01/17 13:05 01/02/17 06:21 Sodium Level 144 mmol/L 143 mmol/L Potassium Level 3.8 mmol/L 3.5 mmol/L Chloride Level 112 mmol/L 109 mmol/L Carbon Dioxide Level 24 mmol/L 27 mmol/L Anion Gap 8.0 mmol/L 7.0 mmol/L Blood Urea Nitrogen 7 mg/dl 9 mg/dl Creatinine 0.90 mg/dl 1.00 mg/dl Est Creatinine Clear Calc Drug Dose 104.9 ml/min 102.3 ml/min Estimated GFR () 126.0 110.9 Estimated GFR (Non- 108.7 95.7 BUN/Creatinine Ratio 8.1 9.4 Random Glucose 107 mg/dl 87 mg/dl Calcium Level 8.2 mg/dl 8.6 mg/dl Phosphorus Level 3.1 mg/dl 3.8 mg/dl Iron Level 37 mcg/dl Total Iron Binding Capacity 268 mcg/dl Transferrin 203 mg/dl Transferrin % Saturation 13 % % Ferritin 153.1 ng/ml White Blood Count 6.63 K/uL Red Blood Count 4.65 M/uL Hemoglobin 12.3 g/dL Hematocrit 38.2 % Mean Corpuscular Volume 82.2 fL Mean Corpuscular Hemoglobin 26.5 pg Mean Corpuscular Hemoglobin Concent 32.2 g/dl RDW Standard Deviation 41.9 fL RDW Coefficient of Variation 13.9 % Platelet Count 267 K/uL Mean Platelet Volume 9.0 fL Exam: General: Patient alert and oriented sitting up in bed in no acute distress HEENT normocephalic atraumatic no scleral icterus Neurological examination: Mental status patient is alert and oriented to person place and time. Good fund of knowledge. Able to give his own history. Speech is fluent without any dysarthria or aphasia noted Moving all extremities equally and antigravity. No ataxia noted. Station within the bed is normal Current Inpatient Medications Medications (Trade) Dose Ordered Sig/Eriberto Route Start Time Stop Time Status Last Admin Dose Admin Heparin Sodium (Porcine) (Heparin Sq 5000 Unit/0.5ml) 5,000 unit Q12 SQ 01/01/17 21:00 01/31/17 20:59 01/02/17 09:18 5,000 UNIT Acetaminophen (Tylenol Tab) 650 mg Q4H PRN PO 01/01/17 08:15 01/31/17 08:14 01/01/17 09:35 650 MG Magnesium Hydroxide (Milk Of Magnesia Susp) 30 ml Q12H PRN PO 01/01/17 08:15 01/31/17 08:14 Ondansetron HCl (Zofran Inj) 4 mg Q6H PRN IV 01/01/17 08:15 01/31/17 08:14 Lorazepam (Ativan Inj) 1 mg ONE PRN IV 01/01/17 08:15 01/31/17 08:14 Gadobutrol (Gadavist) 6.5 mmol UD PRN IV 01/01/17 10:45 01/05/17 10:44 Ketorolac Tromethamine (Toradol Inj) 30 mg Q6H PRN IV. 01/01/17 23:45 01/06/17 23:44 01/02/17 00:00 30 MG Impression This is a 36-year-old male who presents with what sounds like a single possible generalized seizure. Cannot rule out focal onset seizure. Low phosphorus not clearly an etiology. No other risk factor for seizures. Plan Follow-up in neurology clinic in approximately 1-2 month to make sure these established with the clinic in the event that he has any additional episodes concerning for seizures in the future. Discussed that if he has no additional seizures in the next 2 years, it is unlikely that he will go on to have any further seizures. per [facility] law, if there is no clear preventable/provokable cause for his seizure, he is not to drive for 6 months since his last seizure. With a single seizure, no need to start antiepileptic medications at this time Thank you for allowing me to participate in this patient's care. If there is any questions or concerns, feel free to call/page me.
[2017-01-02] MEDS: KETOROLAC TROMETHAMINE 30 MG/ML VIAL IV. PRN ×2 (10:04)
--- NOTE | 2017-01-02 10:19 | Discharge Instructions ---
Discharge Instructions Date of Service Jan 02, 2017. Admission Reason for Admission: Hypokalemia, Hypophosphatasia, Seizure Discharge Discharge Diagnosis / Problem: seizure Discharge Goals Goal(s): Diagnostic testing Activity Recommendations Activity Limitations: as noted below Driving or Machine Use: 6 months restriction . Instructions / Follow-Up Instructions / Follow-Up You were admitted for the evaluation of a seizure. The MRI was noted to be normal as well as the EEG. As this is the first occurrence will refrain from starting medications at this time. Follow up with you PCP in the next week and neurology in 1-2 months. Based [place] you will be unable to drive for the next 6 months and can resume as long as you are seizure free. Current Hospital Diet Patient's current hospital diet: Regular Diet Discharge Diet Recommended Diet: Regular Diet Pending Studies Studies pending at discharge: no Medical Emergencies . Who to Call and When: Medical Emergencies: If at any time you feel your situation is an emergency, please call 911 immediately. . Non-Emergent Contact Non-Emergency issues call your: Primary Care Provider . . "Provider Documentation" section prepared by Radha Stone. . VTE Core Measure Inpt VTE Proph given/why not?: Unfractionated heparin SQ
--- NOTE | 2017-01-02 10:23 | Discharge Summary ---
Discharge Summary Date of Service Jan 02, 2017. (Radha Stone MD) Discharge Summary Admission Date: Jan 01, 2017 at 08:08 Discharge Disposition: Home Principal Diagnosis: Seizure Consultations: Dr See - Neurology (Radha Stone MD) Medication Reconciliation Medication Profile: No Active Prescriptions or Reported Meds Discharge Exam no seizures overnight. We discussed the patient's discharge and instructions and patient reflected understanding and agreeable to d/c. Review of Systems: Constitutional: No fever Eyes: No worsening of vision ENT: No hearing loss Respiratory: No cough, No sputum, No wheezing, No shortness of breath, No dyspnea on exertion, No dyspnea at rest Cardiovascular: No chest pain Abdomen: No pain, No nausea, No vomiting, No diarrhea, No constipation Musculoskeletal: No joint pain, No muscle pain Genitourinary - Female: No dysuria, No hematuria Neurologic: No weakness, No numbness/tingling, No balance problems Psychiatric: No depression symptoms Integumentary: No rash Physical Exam: General Appearance: no apparent distress Eyes: normal inspection, PERRL, EOMI ENT: normal ENT inspection Neck: supple Respiratory/Chest: normal breath sounds, no respiratory distress, no accessory muscle use Cardiovascular: regular rate, rhythm, no murmur Abdomen / GI: normal bowel sounds, non tender, soft Extremities: normal inspection, no calf tenderness, no pedal edema 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 no dark stools Review of Systems: Constitutional: No fever Respiratory: No shortness of breath Cardiovascular: No chest pain Abdomen: No pain Neurologic: No memory loss, No paralysis, No weakness, No numbness/tingling , No vertigo Physical Exam: General Appearance: no apparent distress Respiratory/Chest: lungs clear, no respiratory distress Cardiovascular: regular rate, rhythm Neurologic/Psychiatric: no motor/sensory deficits, alert, normal mood/affect , oriented x 3 Skin: warm/dry (Omaira Harrell M.D.) Hospital Course This is a 36 yo m with new onset seizures with no specific provoking features. New onset seizure - MRI brain combo- WNL -- EEG - WNL - Appreciate neuro rec - Based [place] [employer] law patient will be restricted from driving x 6 months -lyme neg - Follow up with neuro in 1-2 months, follow up with PCP in 1 week Hypophosphatemia - Vit D and PTH WNL _ recommend a recheck in 2 weeks Hypokalemia - Recommend a recheck in 1-2 weeks DVT Prophylaxis Heparin bid received Total Time Spent: Less than 30 minutes This includes examination of the patient, discharge planning, medication reconciliation, and communication with other providers. (Radha Stone MD) Resident Physician Supervision Note: I was present with Dr. Paniagua in bedside. I verified the moe history and physical , reviewed labs and image studies, discussed the case with the resident and agree with the findings and care plan. Anemia - Outpatient evaluation. Total Time Spent: Greater than 30 minutes (35) (Omaira Harrell M.D.) Discharge Instructions Please refer to the electronic Patient Visit Report (Discharge Instructions) for additional information. (Radha Stone MD) Additional Copies To Shashi Cook MD
[2017-01-02 12:45] VITALS: BP 106/71; PULSE 57; TEMP 36.5; O2SAT 98
== END 2017-01-02 14:10 | disposition home or self-care (01) | DRG 642 ==
LOC: EDBD 04:42 → C.EDB 04:43 → C.MED 08:08 → ENRESERV 09:01
PROVIDERS: ADMIT Family Medicine; ATTEND Family Medicine
DX: E83.39 Other disorders of phosphorus metabolism (principal); E87.6 Hypokalemia; R56.9 Unspecified convulsions; D64.9 Anemia, unspecified; Z51.81 Encounter for therapeutic drug level monitoring; Z87.19 Personal history of other diseases of the digestive system

== ENCOUNTER → 2017-02-13 | Outpatient (CLI) | payer BC ==
[~2017-02-13] MED LIST: GADAVIST IV PRN; GLUCAGON FOR INJ 1 MG VIAL ONE; NURSING VERBAL MED ORDER ONE
--- NOTE | 2017-02-13 15:23 | DIAGNOSTIC IMAGING REPORT ---
ENTEROGRAPHY ABD/PELVIS COMBO CLINICAL HISTORY: CROHNS DISEASE pain TECHNIQUE: MRI multi axial acquisition COMPARISON STUDY: None FINDINGS: Lung bases are clear. Mild fatty replacement of the liver. No evidence for gallbladder distention. The spleen is uniform. Kidneys negative for hydronephrosis. The adrenal glands are normal. The bowel pattern is considered nonobstructive throughout. There is no significant bowel distention. No significant bowel wall thickening. The distal ileum appears unremarkable. The colonic mucosal pattern appears unremarkable as well. No free fluid within the pelvic cul-de-sac. Bladder is midline. No significant adenopathy within the abdominal pelvic or inguinal region. IMPRESSION: 1. Essentially negative study of the abdomen and pelvis. 2. Normal bowel pattern with no evidence for abnormal bowel wall thickening or mucosal effacement. 3. Mild fatty replacement of the liver. The above report was generated using voice recognition software. It may contain grammatical, syntax or spelling errors. Electronically signed by: Derick Gutiérrez M.D. 02/13/2017 3:21 PM Dictated Date/Time: 02/13/2017 3:18 PM
== END | disposition home or self-care (01) ==
LOC: C.MRI 12:15
PROVIDERS: ATTEND Internal Medicine Gastroenterology
DX: K50.90 Crohn's disease, unspecified, without complications (principal)

== ENCOUNTER → 2017-04-30 | Outpatient (CLI) | payer BC ==
[2017-05-01 16:25] LABS: ALBUMIN 4.4 G/DL (3.8-4.8); TOTAL PROTEIN 7.3 G/DL (6.2-8.3)
--- NOTE | 2017-05-04 06:45 | CODING QUERY MEDICAL NECESSITY ---
CQSUPPORTING DIAGNOSIS NEEDED A supporting diagnosis is required for the test/procedure performed on this patient in order for us to be reimbursed by the patient's insurance. Please provide a supporting diagnosis for the following test/procedure listed below next to the test name along with your signature. *If there is no additional diagnosis for this patient that would support the following test/procedure please document that below next to the test/procedure. Test(s)/Procedure(s) that require a supporting diagnosis: DOS 04/30/17 C-REACTIVE PROTEIN TEST ERYTHROCYTE SEDIMENT TEST IMMUNOFIXATION SERUM PROTEIN ELECTROPHORESIS Provider Signature: Date: Thank you Radha Guzmán Health Information Management Once completed, please kindly fax back to [phone] For questions please call [phone]
== END | disposition home or self-care (01) ==
LOC: C.LAB1850 10:01
PROVIDERS: ATTEND Internal Medicine Rheumatology
DX: K50.90 Crohn's disease, unspecified, without complications (principal); M12.80 Other specific arthropathies, not elsewhere classified, unspecified site; M54.6 Pain in thoracic spine; B27.90 Infectious mononucleosis, unspecified without complication

== ENCOUNTER → 2017-04-30 | Outpatient (CLI) | payer BC ==
--- NOTE | 2017-04-30 10:00 | DIAGNOSTIC IMAGING REPORT ---
R RIBS UNILATERAL WITH PA CHEST HISTORY: 36 years-old Male M54.6,M12.80 acute right-sided rib pain without reported trauma COMPARISON: Thoracic spine radiographs of same day TECHNIQUE: Frontal view of the chest with 4 views of the right ribs FINDINGS: Cardiac silhouette is within normal limits. Calcified left hilar lymph nodes are seen. No pneumothorax, pleural effusion or focal airspace consolidation. There is a somewhat linear ill-defined opacity of the lateral left lung base interposed between the posterior aspects of the eighth and ninth ribs suggesting composite density artifact. The ribs appear intact without acute fracture or dislocation. IMPRESSION: 1. No acute cardiopulmonary process. 2. No acute rib fracture or pneumothorax identified. The above report was generated using voice recognition software. It may contain grammatical, syntax or spelling errors. Electronically signed by: Dae Mendez M.D. 04/30/2017 9:58 AM Dictated Date/Time: 04/30/2017 9:56 AM
--- NOTE | 2017-04-30 10:15 | DIAGNOSTIC IMAGING REPORT ---
THORACIC SPINE 3 VIEWS ROUTINE HISTORY: Pain K50.90 Crohn's qcesoljT70.80 Human leukocyte antigen B27 positive COMPARISON: Injury due to thousand 13 FINDINGS: There is no fracture. Mild stable scoliosis. Disc spaces are preserved. Calcified left hilar node is unchanged IMPRESSION: No fracture or subluxation within the thoracic spine. Minimal degenerative disc change. Unchanging small thoracic scoliosis. The above report was generated using voice recognition software. It may contain grammatical, syntax or spelling errors. Electronically signed by: Derick Gutiérrez M.D. 04/30/2017 10:14 AM Dictated Date/Time: 04/30/2017 10:13 AM
== END | disposition home or self-care (01) ==
LOC: C.RAD1850 09:33
PROVIDERS: ATTEND Internal Medicine Rheumatology
DX: M12.80 Other specific arthropathies, not elsewhere classified, unspecified site (principal); M54.6 Pain in thoracic spine; R07.81 Pleurodynia; K50.90 Crohn's disease, unspecified, without complications